=== PATIENT | female | born 1950 | race African-American/Black ===

== ENCOUNTER 2018-11-03 01:00 | Inpatient (IN) | payer OTHER, MEDICAID ==
[~2018-11-03] VITALS: Ht 157.5 cm; Wt 46.0 kg
[~2018-11-03 01:00] MED LIST: LISI2.5T47 PO
[2018-11-03] MEDS ORDERED: MORPHINE SULFATE 4 MG/ML CPJ (NOT FOR IM USE) IV STA (01:31)
[2018-11-03] MEDS ORDERED: ONDANSETRON HCL 4MG/2ML INJ IV STA (01:31)
[2018-11-03] MEDS ORDERED: HYDRALAZINE 20MG/ML VIAL IV ONE ×2 (01:45→05:45)
[2018-11-03 02:58] LABS: HEMATOCRIT. 43.6 % (36.0-48.0); HEMOGLOBIN. 14.1 g/dL (12.0-16.0); MEAN CORPUSCULAR HEMOGLOBIN 27.9 pg (28.0-32.0); MEAN CORPUSCULAR VOLUME 86.6 fL (81.0-99.0); MEAN PLATELET VOLUME 8.8 fl (7.4-10.4); PLATELET 256 x1000/uL (130-400); RED BLOOD CELL COUNT 5.03 mill/uL (4.2-5.4); RED CELL DISTRIBUTION WIDTH 15.2 % (11.6-14.6)
[2018-11-03] MEDS ORDERED: LEVOFLOXACIN 750MG PREMIX 150 ML IV ONE (03:00)
[2018-11-03] MEDS ORDERED: METRONIDAZOLE 500 MG PREMIX 100 ML IV ONE (03:00)
[2018-11-03 03:02] LABS: PARTIAL THROMBOPLASTIN TIME 29.4 sec (23.4-31.0); PROTHROMBIN TIME 10.2 sec (9.1-11.1)
[2018-11-03 03:03] LABS: CHLORIDE 105 mEq/L (98-107)
[2018-11-03 03:06] LABS: ETHANOL BLOOD < 10 mg/dL
[2018-11-03 03:38] LABS: PLATELET ESTIMATE NORMAL
[2018-11-03] MEDS ORDERED: ONDANSETRON HCL 4MG/2ML INJ IV ONE (05:30)
[2018-11-03 11:02] LABS: *AMPHETAMINES SCREEN URINE NEGATIVE (NEGATIVE); *BARBITURATES SCREEN URINE NEGATIVE (NEGATIVE); *BENZODIAZEPINES SCREEN URINE NEGATIVE (NEGATIVE)
[2018-11-03 11:03] LABS: *COCAINE SCREEN URINE NEGATIVE (NEGATIVE); CANNABINOID URINE SCREEN PRESUMTIVE POSITIVE (NEGATIVE); METHADONE URINE SCREEN NEGATIVE (NEGATIVE); OPIATES URINE SCREEN PRESUMTIVE POSITIVE (NEGATIVE); PHENCYCLIDINE URINE SCREEN NEGATIVE (NEGATIVE)
[2018-11-03 14:59] VITALS: BP 162/79
[2018-11-03] MEDS ORDERED: SODIUM CHLORIDE 0.9% 1,000 ML IV SCH (17:17)
[2018-11-03] MEDS ORDERED: HYDROCODONE/ACETAMINOPHEN 10/325MG TABLET PO PRN (17:30)
[2018-11-03] MEDS ORDERED: ACETAMINOPHEN 650MG SUPP PR PRN (17:30)
[2018-11-03] MEDS ORDERED: NA PHOS,M-B/NA PHOS,DI-BA ENEMA 118ML PR PRN (17:30)
[2018-11-03] MEDS ORDERED: DIPHENHYDRAMINE 50MG/ML VIAL IV PRN (17:30)
[2018-11-03] MEDS ORDERED: IPRATROPIUM/ALBUTEROL 0.5-3(2.5)MG/3ML NEB INH PRN (17:30)
[2018-11-03] MEDS ORDERED: MAGNESIUM/ALUMINUM HYDROXIDE/SIMETHICONE 30ML UDC PO PRN (17:30)
[2018-11-03] MEDS ORDERED: CLONIDINE 0.1MG TABLET PO PRN (17:30)
[2018-11-03] MEDS ORDERED: ONDANSETRON HCL 4MG/2ML INJ IV PRN (17:30)
[2018-11-03] MEDS ORDERED: ACETAMINOPHEN 650MG/20.3ML UDC GT PRN (17:30)
[2018-11-03] MEDS ORDERED: SODIUM CHLORIDE 0.9% INJ 3ML FLUSH IVF SCH (22:00)
== END 2018-11-03 19:05 | disposition left against medical advice (07) | DRG 438 ==
LOC: ER 01:00 → 5WST 03:33 → EDBEDREQTM 03:37 → EDBEDREQ 03:37 → ENRESERV 15:20
PROVIDERS: ADMIT Family Medicine; ATTEND Family Medicine
DX: K86.1 Other chronic pancreatitis (principal); N17.0 Acute kidney failure with tubular necrosis; I69.351 Hemiplegia and hemiparesis following cerebral infarction affecting right dominant side; R10.9 Unspecified abdominal pain; F12.90 Cannabis use, unspecified, uncomplicated; Z53.21 Procedure and treatment not carried out due to patient leaving prior to being seen by health care provider; F17.210 Nicotine dependence, cigarettes, uncomplicated; I10 Essential (primary) hypertension; Z85.038 Personal history of other malignant neoplasm of large intestine; Z90.49 Acquired absence of other specified parts of digestive tract; Z88.0 Allergy status to penicillin; Z88.8 Allergy status to other drugs, medicaments and biological substances
CPT/HCPCS: 36415; 71045; 74176; 80305; 83605; 83880; 84484; 93005; 96374; 96375; 99285; J0360; J1956; J2270; J2405; J3490

== ENCOUNTER 2019-01-18 02:21 | Emergency (ER) | payer OTHER, MEDICAID ==
[~2019-01-18] VITALS: Ht 154.9 cm; Wt 50.0 kg
[2019-01-18] MEDS ORDERED: SODIUM CHLORIDE 0.9% 1,000 ML IV ONE (03:29)
[2019-01-18] MEDS ORDERED: MORPHINE SULFATE 4 MG/ML CPJ (NOT FOR IM USE) IV STA (03:29)
[2019-01-18] MEDS ORDERED: ONDANSETRON HCL 4MG/2ML INJ IV STA (03:29)
[2019-01-18 03:53] LABS: BASOPHILS % 0.4 % (0.0-2.0); HEMATOCRIT. 40.5 % (36.0-48.0); HEMOGLOBIN. 13.3 g/dL (12.0-16.0); LYMPHOCYTES % 12.7 % (20.0-50.0); MEAN CORPUSCULAR HEMOGLOBIN 28.5 pg (28.0-32.0); MEAN CORPUSCULAR VOLUME 86.6 fL (81.0-99.0); MEAN PLATELET VOLUME 8.6 fl (7.4-10.4); MONOCYTES % 3.5 % (2.0-8.0); NEUTROPHILS % 83.4 % (40.0-76.0); PLATELET 267 x1000/uL (130-400); RED BLOOD CELL COUNT 4.67 mill/uL (4.2-5.4); RED CELL DISTRIBUTION WIDTH 14.2 % (11.6-14.6)
[2019-01-18 03:54] LABS: CHLORIDE 113 mEq/L (98-107)
[2019-01-18] MEDS ORDERED: AMLODIPINE 5MG TABLET PO ONE (04:15)
[2019-01-18] MEDS ORDERED: MECLIZINE 25MG TABLET PO ONE (06:00)
[2019-01-18 06:36] LABS: CLARITY URINE CLEAR (CLEAR); COLOR URINE YELLOW (YELLOW); KETONES URINE TRACE (NEGATIVE); LEUKOCYTE ESTERASE URINE NEGATIVE (NEGATIVE); NITRITE URINE NEGATIVE (NEGATIVE); OCCULT BLOOD URINE 1+ (NEGATIVE); PROTEIN URINE 4+ (NEGATIVE); SPECIFIC GRAVITY URINE 1.024 (1.005-1.030); UROBILINOGEN URINE 0.2 E.U./dL (0.2-1.0)
[2019-01-18 07:37] VITALS: BP 185/88
== END 2019-01-18 08:38 | disposition home or self-care (01) ==
LOC: ER 02:21
DX: N39.0 Urinary tract infection, site not specified (principal); I10 Essential (primary) hypertension; F03.90 Unspecified dementia, unspecified severity, without behavioral disturbance, psychotic disturbance, mood disturbance, and anxiety; Z86.73 Personal history of transient ischemic attack (TIA), and cerebral infarction without residual deficits; Z90.710 Acquired absence of both cervix and uterus; Z88.0 Allergy status to penicillin
CPT/HCPCS: 36415; 71045; 74176; 80053; 81003; 82962; 83690; 84484; 85025; 93005; 96361; 96374; 96375; 99284; J2270; J2405; J7030; J8597

== ENCOUNTER 2020-04-03 18:43 | Inpatient (IN) | payer OTHER, MEDICAID ==
[~2020-04-03] VITALS: Ht 160 cm; Wt 49.9 kg
[2020-04-03] MEDS ORDERED: CEFTRIAXONE 2 G PREMIX 50 ML IV ONE (19:15)
[2020-04-03] MEDS ORDERED: VANCOMYCIN 1 G PREMIX 200 ML IV ONE (19:15)
[2020-04-03] MEDS ORDERED: MAGNESIUM 2 G PREMIX 50 ML IV ONE (19:15)
[2020-04-03] MEDS ORDERED: METHYLPREDNISOLONE SOD SUCC 125 MG/2 ML VIAL IV STA (19:15)
[2020-04-03 19:28] LABS: BASOPHILS % 0.5 % (0.0-2.0); HEMATOCRIT. 33.5 % (36.0-48.0); LYMPHOCYTES % 14.9 % (20.0-50.0); MEAN CORPUSCULAR HEMOGLOBIN 33.6 pg (28.0-32.0); MEAN CORPUSCULAR VOLUME 112.9 fL (81.0-99.0); MEAN PLATELET VOLUME 8.9 fl (7.4-10.4); MONOCYTES % 9.8 % (2.0-8.0); NEUTROPHILS % 74.8 % (40.0-76.0); PLATELET 279 x1000/uL (130-400); RED BLOOD CELL COUNT 2.96 mill/uL (4.2-5.4)
[2020-04-03 19:33] LABS: CHLORIDE 104 mEq/L (98-107)
[2020-04-03 19:37] LABS: INR 1.1; PARTIAL THROMBOPLASTIN TIME 35.4 sec (23.4-31.0); PROTHROMBIN TIME 11.5 sec (9.6-11.0)
[2020-04-03 19:38] LABS: ETHANOL BLOOD 27 mg/dL
[2020-04-03] MEDS ORDERED: SODIUM CHLORIDE 0.9% 1,000 ML IV ONE (19:45)
[2020-04-03 20:34] LABS: BG BASE EXCESS -28.7 mmol/L (-2.0-2.0); BG CARBOXYHEMOGLOBIN 0.3 % (0.5-1.5); BG DEOXYHEMOGLOBIN 0.4 % (0.0-5.0); BG FRACTION INSPIRED OXYGEN 100; BG METHEMOGLOBIN 0.6 % (0.0-1.5); BG OXYGEN SATURATION 99.6 % (92.0-98.5); BG OXYHEMOGLOBIN 98.7 % (94.0-97.0); BG PCO2 10.2 mmHg (35.0-45.0); BG PH 6.917 (7.350-7.450); BG PO2 367.9 mmHg (75.0-100.0); BG SAMPLE SITE RIGHT RADIAL; BG TOTAL HEMOGLOBIN 9.6 g/dL (12.0-18.0); BG VENT MODE MASK - NRB
[2020-04-03] MEDS ORDERED: METRONIDAZOLE 500 MG PREMIX 100 ML IV NR (22:45)
[2020-04-03 23:33] LABS: PLATELET ESTIMATE NORMAL
[2020-04-03 23:51] LABS: CLARITY URINE CLOUDY (CLEAR); COLOR URINE YELLOW (YELLOW); KETONES URINE 2+ (NEGATIVE); LEUKOCYTE ESTERASE URINE NEGATIVE (NEGATIVE); NITRITE URINE NEGATIVE (NEGATIVE); OCCULT BLOOD URINE 2+ (NEGATIVE); PROTEIN URINE 3+ (NEGATIVE)
[2020-04-04] MEDS ORDERED: ACETAMINOPHEN 325MG TABLET PO PRN (07:45)
[2020-04-04] MEDS ORDERED: CLONIDINE 0.1MG TABLET PO PRN (07:45)
[2020-04-04] MEDS ORDERED: LEVOFLOXACIN 500MG PREMIX 100 ML IV SCH ×2 (07:45→08:30)
[2020-04-04] MEDS ORDERED: MAGNESIUM/ALUMINUM HYDROXIDE/SIMETHICONE 30ML UDC PO PRN (07:45)
[2020-04-04] MEDS ORDERED: ONDANSETRON HCL 4MG/2ML INJ IV PRN (07:45)
[2020-04-04] MEDS ORDERED: DIPHENHYDRAMINE 50MG/ML VIAL IV PRN (07:45)
[2020-04-04] MEDS ORDERED: MORPHINE SULFATE 2 MG/ML CPJ (NOT FOR IM USE) IV PRN (07:45)
[2020-04-04] MEDS ORDERED: LORAZEPAM 2MG/ML CPJ IV PRN (07:45)
[2020-04-04] MEDS ORDERED: IPRATROPIUM/ALBUTEROL 0.5-3(2.5)MG/3ML NEB HHN PRN (07:45)
[2020-04-04] MEDS ORDERED: DOCUSATE SODIUM 100MG CAPSULE PO PRN (07:45)
[2020-04-04] MEDS ORDERED: GUAIFENESIN 200MG/10ML SUGAR FREE UDC PO PRN (07:45)
[2020-04-04] MEDS ORDERED: HYDROCODONE/ACETAMINOPHEN 10/325MG TABLET PO PRN (07:45)
[2020-04-04] MEDS ORDERED: HYDRALAZINE 20MG/ML VIAL IV PRN (07:45)
[2020-04-04 09:00] VITALS: BP 108/51
[2020-04-04] MEDS ORDERED: METO25TA6 MT (09:58)
[2020-04-04] MEDS ORDERED: FLUO10CA25 PO (09:58)
[2020-04-04] MEDS ORDERED: GABA-529 PO (09:58)
[2020-04-04] MEDS ORDERED: OMEP20CA14 PO (09:58)
[2020-04-04] MEDS ORDERED: FOLI0.4T2 MT (09:58)
[2020-04-04] MEDS ORDERED: ATOR40TA70 PO (09:58)
[2020-04-04] MEDS ORDERED: RISP05 MT (09:58)
[2020-04-04 10:00] VITALS: BP 108/51
[2020-04-04] MEDS ORDERED: LEVOFLOXACIN 500MG PREMIX 100 ML IV NR (10:00)
[2020-04-04] MEDS ORDERED: SODIUM BICARBONATE 8.4% 1 MEQ/ML 50ML SYR IV ONE (11:00)
[2020-04-04 11:06] LABS: BG BASE EXCESS -27.3 mmol/L (-2.0-2.0); BG CARBOXYHEMOGLOBIN 0.3 % (0.5-1.5); BG DEOXYHEMOGLOBIN 4.8 % (0.0-5.0); BG FRACTION INSPIRED OXYGEN 40; BG HCO3 ACT 3.4 mmol/L (22.0-26.0); BG OXYGEN SATURATION 95.2 % (92.0-98.5); BG OXYHEMOGLOBIN 94.9 % (94.0-97.0); BG PCO2 17.1 mmHg (35.0-45.0); BG PH 6.916 (7.350-7.450); BG PO2 88.1 mmHg (75.0-100.0); BG SAMPLE SITE LEFT RADIAL; BG TOTAL HEMOGLOBIN 8.5 g/dL (12.0-18.0); BG VENT MODE ROOM AIR
[2020-04-04] MEDS: ENOXAPARIN 30MG/0.3ML SYR SUBCUT SCH (11:11)
[2020-04-04] MEDS: CHOLECALCIFEROL (D3) 1000 UNIT TABLET PO SCH (13:45)
[2020-04-04] MEDS: SODIUM CHLORIDE 0.9% INJ 3ML FLUSH IVF SCH ×2 (14:00→22:14)
[2020-04-04] MEDS: SODIUM BICARBONATE 150 MEQ in DEXTROSE 5% WATER 1,000 ML IV SCH ×3 (14:02→23:10)
[2020-04-04] MEDS: THIAMINE HCL 200 MG in SODIUM CHLORIDE 0.9% 98 ML IV SCH (15:40)
[2020-04-04 16:00] VITALS: BP 95/59
[2020-04-04] MEDS: DEXAMETHASONE 4MG/ML 1ML VIAL IV SCH (16:36)
[2020-04-04 19:27] LABS: HEMATOCRIT. 26.7 % (36.0-48.0); HEMOGLOBIN. 8.4 g/dL (12.0-16.0); MEAN CORPUSCULAR HEMOGLOBIN 32.7 pg (28.0-32.0); MEAN CORPUSCULAR VOLUME 104.1 fL (81.0-99.0); MEAN PLATELET VOLUME 9.4 fl (7.4-10.4); PLATELET 184 x1000/uL (130-400); RED BLOOD CELL COUNT 2.57 mill/uL (4.2-5.4); RED CELL DISTRIBUTION WIDTH 15.6 % (11.6-14.6)
[2020-04-04 19:42] LABS: T4 FREE 0.75 ng/dL (0.76-1.46)
[2020-04-04 19:46] LABS: CREATINE KINASE MB FRACTION 25.1 ng/mL (0.5-3.6)
[2020-04-04 20:00] VITALS: BP 110/63
[2020-04-04] MEDS: ASCORBIC ACID 500 MG TABLET PO SCH ×2 (20:41→20:52)
[2020-04-04 23:26] LABS: CREATINE KINASE MB FRACTION 24.7 ng/mL (0.5-3.6)
[2020-04-05] VITALS (7 sets, daily range): BP systolic 96–143; BP diastolic 57–82
[2020-04-05] MEDS: ACETYLCYSTEINE 100MG/ML 10% VIAL 4ML INH SCH ×2 (01:18→15:15)
[2020-04-05 02:53] LABS: NUCLEATED RED BLOOD CELLS 23 /100 WBC; PLATELET ESTIMATE NORMAL
[2020-04-05] MEDS: SODIUM CHLORIDE 0.9% INJ 3ML FLUSH IVF SCH ×3 (05:59→21:32)
[2020-04-05] MEDS: ASPIRIN 81MG TABLET PO SCH (09:00)
[2020-04-05] MEDS: ASCORBIC ACID 500 MG TABLET PO SCH (09:00)
[2020-04-05] MEDS: CHOLECALCIFEROL (D3) 1000 UNIT TABLET PO SCH (09:00)
[2020-04-05 09:53] LABS: BG BASE EXCESS -4.2 mmol/L (-2.0-2.0); BG CARBOXYHEMOGLOBIN 0.3 % (0.5-1.5); BG FRACTION INSPIRED OXYGEN 40; BG METHEMOGLOBIN 0.2 % (0.0-1.5); BG OXYHEMOGLOBIN 90.5 % (94.0-97.0); BG PCO2 27.6 mmHg (35.0-45.0); BG PH 7.456 (7.350-7.450); BG PO2 55.2 mmHg (75.0-100.0); BG SAMPLE SITE LEFT BRACHIAL; BG TOTAL HEMOGLOBIN 8.2 g/dL (12.0-18.0); BG VENT MODE NASAL CANNULA
[2020-04-05] MEDS: SODIUM BICARBONATE 150 MEQ in DEXTROSE 5% WATER 1,000 ML IV SCH (09:56)
[2020-04-05] MEDS: ENOXAPARIN 30MG/0.3ML SYR SUBCUT SCH (11:07)
[2020-04-05 13:35] LABS: HEMATOCRIT. 25.3 % (36.0-48.0); HEMOGLOBIN. 8.5 g/dL (12.0-16.0); MEAN CORPUSCULAR HEMOGLOBIN 32.4 pg (28.0-32.0); MEAN CORPUSCULAR VOLUME 96.6 fL (81.0-99.0); MEAN PLATELET VOLUME 9.2 fl (7.4-10.4); PLATELET 163 x1000/uL (130-400); RED BLOOD CELL COUNT 2.61 mill/uL (4.2-5.4); RED CELL DISTRIBUTION WIDTH 15.4 % (11.6-14.6)
[2020-04-05] MEDS: DEXAMETHASONE 4MG/ML 1ML VIAL IV SCH (13:42)
[2020-04-05 13:48] LABS: CHLORIDE 102 mEq/L (98-107)
[2020-04-05 13:59] LABS: CREATINE KINASE 817 IU/L (26-192)
[2020-04-05 14:01] LABS: CREATINE KINASE MB FRACTION 20.3 ng/mL (0.5-3.6)
[2020-04-05 14:25] LABS: HEPATITIS B SURFACE ANTIGEN NEGATIVE
[2020-04-05 14:55] LABS: HEPATITIS A AB IGM NEGATIVE (NEGATIVE)
[2020-04-05] MEDS: IPRATROPIUM/ALBUTEROL 0.5-3(2.5)MG/3ML NEB HHN SCH ×2 (15:15→21:44)
[2020-04-05] MEDS: THIAMINE HCL 200 MG in SODIUM CHLORIDE 0.9% 98 ML IV SCH (17:19)
[2020-04-05] MEDS ORDERED: ASPIRIN 81MG TABLET PO NR (17:30)
[2020-04-05] MEDS ORDERED: VANCOMYCIN 750 MG PREMIX 150 ML IV NR (18:00)
[2020-04-05] MEDS: CLOPIDOGREL 75MG TABLET PO SCH (18:14)
[2020-04-05] MEDS: METOPROLOL TARTRATE 25MG TABLET PO SCH (21:00)
[2020-04-05] MEDS ORDERED: SODIUM CHLORIDE 0.45% 1,000 ML IV SCH (21:15)
[2020-04-05 23:20] LABS: PLATELET ESTIMATE NORMAL
[2020-04-06] MEDS: IPRATROPIUM/ALBUTEROL 0.5-3(2.5)MG/3ML NEB HHN SCH ×3 (01:18→13:14)
[2020-04-06 04:00] VITALS: BP 131/66
[2020-04-06] MEDS: SODIUM CHLORIDE 0.9% INJ 3ML FLUSH IVF SCH ×3 (04:55→21:38)
[2020-04-06] MEDS: METOPROLOL TARTRATE 25MG TABLET PO SCH ×3 (05:27→21:38)
[2020-04-06 06:45] LABS: HEMATOCRIT. 25.4 % (36.0-48.0); HEMOGLOBIN. 8.8 g/dL (12.0-16.0); MEAN CORPUSCULAR VOLUME 95.6 fL (81.0-99.0); MEAN PLATELET VOLUME 9.2 fl (7.4-10.4); PLATELET 136 x1000/uL (130-400); RED BLOOD CELL COUNT 2.66 mill/uL (4.2-5.4); RED CELL DISTRIBUTION WIDTH 14.8 % (11.6-14.6)
[2020-04-06 08:04] VITALS: BP 134/72
[2020-04-06 08:34] LABS: CREATINE KINASE MB FRACTION 4.9 ng/mL (0.5-3.6)
[2020-04-06] MEDS: ACETYLCYSTEINE 100MG/ML 10% VIAL 4ML INH SCH (09:55)
[2020-04-06] MEDS ORDERED: LEVOFLOXACIN 250MG PREMIX 50 ML IV SCH (10:00)
[2020-04-06] MEDS ORDERED: POTASSIUM CHLORIDE 20MEQ TABLET SR PO NR (10:30)
[2020-04-06] MEDS: CLOPIDOGREL 75MG TABLET PO SCH (11:36)
[2020-04-06] MEDS: ASPIRIN 81MG TABLET PO SCH (11:38)
[2020-04-06] MEDS: CHOLECALCIFEROL (D3) 1000 UNIT TABLET PO SCH (11:41)
[2020-04-06] MEDS: ENOXAPARIN 30MG/0.3ML SYR SUBCUT SCH (11:54)
[2020-04-06] MEDS: INSULIN GLARGINE UD 100 UNITS/ML SYR SUBCUT SCH (11:55)
[2020-04-06 12:07] VITALS: BP 133/90
[2020-04-06] MEDS: BLOOD SUGAR DIAGNOSTIC STRIP TEST SCH ×3 (12:35→21:38)
[2020-04-06] MEDS: INSULIN LISPRO 100 UNITS/ML SUBCUT SCH ×3 (12:50→21:00)
[2020-04-06] MEDS: SODIUM CHLORIDE 0.9% 1,000 ML IV SCH (14:46)
[2020-04-06 16:04] VITALS: BP 145/70
[2020-04-06 17:55] LABS: NUCLEATED RED BLOOD CELLS 2 /100 WBC; PLATELET ESTIMATE NORMAL
[2020-04-06] MEDS: THIAMINE HCL 200 MG in SODIUM CHLORIDE 0.9% 98 ML IV SCH (17:58)
[2020-04-06 20:51] VITALS: BP 127/72
[2020-04-07] VITALS (7 sets, daily range): BP systolic 131–173; BP diastolic 70–102
[2020-04-07] MEDS: BLOOD SUGAR DIAGNOSTIC STRIP TEST SCH ×4 (05:21→20:28)
[2020-04-07] MEDS: SODIUM CHLORIDE 0.9% 1,000 ML IV SCH ×2 (05:21→13:58)
[2020-04-07] MEDS: SODIUM CHLORIDE 0.9% INJ 3ML FLUSH IVF SCH ×3 (05:21→20:28)
[2020-04-07 06:42] LABS: BASOPHILS % 0.4 % (0.0-2.0); EOSINOPHILS % 0.3 % (0.0-5.0); HEMATOCRIT. 24.3 % (36.0-48.0); HEMOGLOBIN. 8.2 g/dL (12.0-16.0); MEAN CORPUSCULAR HEMOGLOBIN 32.4 pg (28.0-32.0); MEAN CORPUSCULAR VOLUME 96.4 fL (81.0-99.0); MEAN PLATELET VOLUME 9.7 fl (7.4-10.4); MONOCYTES % 2.6 % (2.0-8.0); NEUTROPHILS % 84.7 % (40.0-76.0); PLATELET 109 x1000/uL (130-400); RED BLOOD CELL COUNT 2.52 mill/uL (4.2-5.4); RED CELL DISTRIBUTION WIDTH 15.2 % (11.6-14.6)
[2020-04-07] MEDS: ACETYLCYSTEINE 100MG/ML 10% VIAL 4ML INH SCH ×2 (07:25→14:00)
[2020-04-07] MEDS: IPRATROPIUM/ALBUTEROL 0.5-3(2.5)MG/3ML NEB HHN SCH ×3 (07:28→20:12)
[2020-04-07] MEDS: INSULIN LISPRO 100 UNITS/ML SUBCUT SCH ×4 (07:34→20:28)
[2020-04-07] MEDS: ENOXAPARIN 30MG/0.3ML SYR SUBCUT SCH (09:08)
[2020-04-07] MEDS: CLOPIDOGREL 75MG TABLET PO SCH (09:08)
[2020-04-07] MEDS: METOPROLOL TARTRATE 25MG TABLET PO SCH ×2 (09:10→20:26)
[2020-04-07] MEDS: ASPIRIN 81MG TABLET PO SCH (09:11)
[2020-04-07] MEDS: CHOLECALCIFEROL (D3) 1000 UNIT TABLET PO SCH (09:14)
[2020-04-07] MEDS: INSULIN GLARGINE UD 100 UNITS/ML SYR SUBCUT SCH (09:58)
[2020-04-07] MEDS: THIAMINE HCL 200 MG in SODIUM CHLORIDE 0.9% 98 ML IV SCH (14:32)
[2020-04-07] MEDS: DEXTROSE 50% WATER 50ML SYRINGE IV PRN ×2 (17:25→20:27)
[2020-04-08] VITALS: BP 129/75
[2020-04-08] MEDS ORDERED: ACETYLCYSTEINE 100MG/ML 10% VIAL 4ML INH SCH (09:00)
== END 2020-04-08 00:10 | disposition short-term general hospital (02) | DRG 871 ==
LOC: ER 18:43 → EDBEDREQDT 04-04 01:52 → EDBEDREQSVC 04-04 01:52 → EDBEDREQ 04-04 01:52 → EDBEDREQTM 04-04 01:52 → ENRESERV 04-04 07:20 → 7WST 04-04 08:53 → 6WST 04-05 11:17
PROVIDERS: ADMIT Internal Medicine; ATTEND Internal Medicine
DX: A41.9 Sepsis, unspecified organism (principal); I21.4 Non-ST elevation (NSTEMI) myocardial infarction; J18.9 Pneumonia, unspecified organism; J96.00 Acute respiratory failure, unspecified whether with hypoxia or hypercapnia; N17.0 Acute kidney failure with tubular necrosis; E44.0 Moderate protein-calorie malnutrition; F03.91 Unspecified dementia, unspecified severity, with behavioral disturbance; G93.40 Encephalopathy, unspecified; K86.1 Other chronic pancreatitis; M62.82 Rhabdomyolysis; D64.9 Anemia, unspecified; I12.9 Hypertensive chronic kidney disease with stage 1 through stage 4 chronic kidney disease, or unspecified chronic kidney disease; E87.5 Hyperkalemia; E78.5 Hyperlipidemia, unspecified; N18.3 Chronic kidney disease, stage 3 (moderate); Z86.73 Personal history of transient ischemic attack (TIA), and cerebral infarction without residual deficits; M47.816 Spondylosis without myelopathy or radiculopathy, lumbar region; Z99.3 Dependence on wheelchair; Z20.828 Contact with and (suspected) exposure to other viral communicable diseases; E78.00 Pure hypercholesterolemia, unspecified; K76.0 Fatty (change of) liver, not elsewhere classified; Z87.01 Personal history of pneumonia (recurrent); D75.89 Other specified diseases of blood and blood-forming organs; F10.10 Alcohol abuse, uncomplicated; R73.9 Hyperglycemia, unspecified; Z88.0 Allergy status to penicillin; Z79.899 Other long term (current) drug therapy
CPT/HCPCS: 36415; 36600; 71045; 74176; 76770; 78580; 80048; 80053; 80061; 80202; 80307; 80320; 80329; 81003; 82375; 82550; 82553; 82805; 82962; 83036; 83605; 83615; 83880; 84439; 84443; 84484; 85025; 85379; 86705; 86709; 86803; 87340; 93005; 93306; 93970; 94640; 99291; J0696; J1100; J1650; J1815; J1956; J2930; J3370; J3411; J3475; J3490; J7030; J7050; J7070; J7608; G0480; U0003-CS